=== PATIENT | male | born 1955 | race Caucasian/White ===

== ENCOUNTER 2016-09-23 22:44 | Emergency (ER) | payer OTHER ==
[~2016-09-23] VITALS: Ht 180.3 cm; Wt 93.7 kg
[~2016-09-23 22:44] MED LIST: FLAGYL500 MG PO; HYDROCODON-ACE1 EAC7 PO; METOPROLOL SUCC50 MG PO; NOHOMEMEDS; ROXICODONE5 MG PO
[2016-09-23 23:30] LABS: HEMATOCRIT 43.1 % (38.0-50.0); MCH 29.8 PG (29.0-34.0); MCHC 34.8 G/DL (30.0-36.0); MCV 85.7 FL (86-99); PLATELET COUNT 275 K/uL (156-360); RBC DIS.WIDTH-CV 12.7 % (11.8-14.6); RBC DIS.WIDTH-SD 39.4 % (39-53); RED BLOOD COUNT 5.03 M/uL (4.00-5.50); WHITE BLOOD COUNT 8.1 K/uL (4.1-10.2)
[2016-09-23 23:42] LABS: CHLORIDE 108 mEq/L (99-109); SODIUM 141 mEq/L (136-147)
[2016-09-23 23:45] LABS: GLUCOSE 115 mg/dL (70-99)
[2016-09-23 23:46] LABS: ANION GAP 10 MEQ/L (2-14); TOTAL BILIRUBIN 0.6 mg/dL (0.0-1.0)
[2016-09-23 23:48] LABS: ALKALINE PHOSPHATASE 53 IU/L (3-129); GFR ESTIMATE (CALCULATED) > 59 mL/min/
[2016-09-23 23:49] LABS: UREA NITROGEN (BUN) 13 mg/dL (9-23)
[2016-09-24 00:27] LABS: LIPASE 27 U/L (1.0-51.0)
[2016-09-24 01:14] LABS: ADD MIUA? NO; BILIRUBIN NEGATIVE; BLOOD NEGATIVE; COLOR YELLOW ((YELLOW)); GLUCOSE (STRIP) NEGATIVE; KETONES NEGATIVE; LEUKOCYTES NEGATIVE; NITRITE NEGATIVE; PROTEIN (STRIP) NEGATIVE; UCUL ADDED? NO
[2016-09-24] MEDS ORDERED: FISH OIL 1,2001 EAC4 PO (01:17)
[2016-09-24] MEDS ORDERED: XARELTO20 MG PO (01:17)
[2016-09-24] MEDS ORDERED: GLUCOSAMINE CH1 EAC7 PO (01:17)
[2016-09-24] MEDS ORDERED: ASCORBIC ACID500 M3 PO (01:18)
[2016-09-24] MEDS ORDERED: ONE-A-DAY ESSE1 EAC1 PO (01:18)
[2016-09-24 01:24] LABS: SPECIFIC GRAVITY 1.055 (1.000-1.030)
[2016-09-24 01:37] VITALS: BP 147/92
== END 2016-09-24 01:37 | disposition left against medical advice (07) ==
LOC: EME 22:44
DX: K56.60 Unspecified intestinal obstruction (principal); Z87.19 Personal history of other diseases of the digestive system; Z90.49 Acquired absence of other specified parts of digestive tract; Z93.3 Colostomy status; Z87.891 Personal history of nicotine dependence
CPT/HCPCS: 74177; 80053; 81003; 83690; 85027; 99281; 99284; J7030

== ENCOUNTER 2016-09-28 12:02 | Day surgery (SDC) | payer OTHER ==
[~2016-09-28] VITALS: Ht 180.3 cm; Wt 93.0 kg
[~2016-09-28 12:02] MED LIST changes: +ASCORBIC ACID500 M3 PO; +FISH OIL 1,2001 EAC4 PO; +GLUCOSAMINE CH1 EAC7 PO; +ONE-A-DAY ESSE1 EAC1 PO; +XARELTO20 MG PO
== END 2016-09-28 14:45 | disposition home or self-care (01) ==
LOC: CATH 12:02
PROC: 5A2204Z Restoration of Cardiac Rhythm, Single (ICD-10-PCS; principal; 2016-09-28)
DX: I48.1 Persistent atrial fibrillation (principal); Z79.01 Long term (current) use of anticoagulants; Z87.891 Personal history of nicotine dependence